=== PATIENT | female | born 1995 | race Caucasian/White ===

== ENCOUNTER 2016-08-04 10:15 | Emergency (ER) | payer OTHER ==
[2016-08-04] MEDS ORDERED: IBUPROFEN 600 MG TABLET ONE (10:54)
== END 2016-08-04 11:07 | disposition home or self-care (01) ==
LOC: ED 10:15
DX: S61.012A Laceration without foreign body of left thumb without damage to nail, initial encounter (principal); W27.4XXA Contact with kitchen utensil, initial encounter; Y93.G1 Activity, food preparation and clean up; Y92.9 Unspecified place or not applicable
CPT/HCPCS: 99283 ×2; 12001 ×2; A9270